=== PATIENT | male | born 1980 | race Caucasian/White ===

== ENCOUNTER 2020-01-05 17:14 | Emergency (ER) | payer SELFPAY ==
[~2020-01-05] VITALS: Ht 185.4 cm; Wt 113.6 kg
[2020-01-05 17:24] VITALS: BP 138/85
[2020-01-05] MEDS ORDERED: CefTRIAXone 250MG IM Kit w/LIDOcaine IM ONE (17:55)
[2020-01-05] MEDS ORDERED: penicillin G benzathine 1.2 million unit/2ml syringe IM ONE ×2 (17:55→18:10)
[2020-01-05] MEDS ORDERED: azithromycin 250mg tablet PO ONE (17:55)
[2020-01-05] MEDS ORDERED: ACYC-202 PO (18:23)
[2020-01-07] MEDS ORDERED: SULF1TAB49 PO (05:30)
[2020-01-07] MEDS ORDERED: VALA10002 PO (05:30)
== END 2020-01-05 18:39 | disposition home or self-care (01) ==
LOC: ER 17:16
DX: Z20.2 Contact with and (suspected) exposure to infections with a predominantly sexual mode of transmission (principal)
CPT/HCPCS: 36415; 86592; 87252; 87491; 87591; 96372; 99284; J0561; J0696